=== PATIENT | female | born 1980 ===

== ENCOUNTER 2020-11-17 12:30 | Inpatient (IN) | payer OTHER ==
[~2020-11-17] VITALS: Ht 167.6 cm; Wt 75.3 kg
[2020-11-17] MEDS ORDERED: IRO-PLEX LIQUI120 ML PO (15:54)
[2020-11-17] MEDS ORDERED: MIXED TOCOTRIE1 EACH PO (15:55)
[2020-11-17] MEDS ORDERED: OPTIMAL D31250 MCG PO (15:55)
== END 2020-11-22 14:14 | disposition home or self-care (01) | DRG 742 ==
LOC: O/R 11-20 06:00 → SURH 11-20 07:00 → OB/GYN 11-20 14:23 → SURG-SUITE 11-21 14:57
PROVIDERS: ADMIT Obstetrics & Gynecology Gynecologic Oncology; ATTEND Obstetrics & Gynecology Gynecologic Oncology
PROC: 0UB70ZZ Excision of Bilateral Fallopian Tubes, Open Approach (ICD-10-PCS; 2020-11-20)
PROC: 0UT90ZZ Resection of Uterus, Open Approach (ICD-10-PCS; principal; 2020-11-20 07:00)
DX: D25.1 Intramural leiomyoma of uterus (principal); D62 Acute posthemorrhagic anemia; D25.2 Subserosal leiomyoma of uterus; N72 Inflammatory disease of cervix uteri; N80.0 Endometriosis of uterus; N83.8 Other noninflammatory disorders of ovary, fallopian tube and broad ligament; N94.89 Other specified conditions associated with female genital organs and menstrual cycle; N93.8 Other specified abnormal uterine and vaginal bleeding; R97.1 Elevated cancer antigen 125 [CA 125]